=== PATIENT | female | born 1960 | race Caucasian/White ===

== ENCOUNTER 2020-11-24 04:47 | Day surgery (SDC) | payer OTHER ==
[2020-11-23 15:12] VITALS: BMI 29.2
[2020-11-24 14:06] VITALS: TEMP 97.7
[2020-11-24 15:44] VITALS: BP 127/68; PULSE 66
== END 2020-11-24 15:00 | disposition home or self-care (01) ==
LOC: JASU-ENDO 04:47
PROVIDERS: ATTEND Internal Medicine Gastroenterology
PROC: 0DJD8ZZ Inspection of Lower Intestinal Tract, Via Natural or Artificial Opening Endoscopic (ICD-10-PCS; principal; 2020-11-24 13:48)
DX: Z12.11 Encounter for screening for malignant neoplasm of colon (principal); Z80.0 Family history of malignant neoplasm of digestive organs